=== PATIENT | male | born 1970 | race Two or more races ===

== ENCOUNTER 2020-07-30 08:22 | Outpatient (REF) | payer MEDICARE, OTHER, SELFPAY ==
--- NOTE | 2020-07-30 09:45 | XR_ITS ---
EXAMINATION: XR CHEST CLINICAL INFORMATION: Dyspnea COMPARISON: None TECHNIQUE: 2 views of the chest were obtained. FINDINGS: No significant abnormality is noted involving the heart, lungs, mediastinum, bony thorax or soft tissues. XR/XR chest 2V IMPRESSION: Unremarkable examination.
[2020-07-30 10:55] LABS: D Dimer 919 NG/ML
[2020-07-30 10:58] LABS: Troponin-I High Sensitivity < 3.5 ng/L (<3.5-35.0)
[2020-07-30 11:00] LABS: Basophils Percent Auto 0.4 % (0-2); Eosinophils Absolute Auto 0.1 X10*3/uL (0.0-0.4); Eosinophils Percent Auto 1.1 % (0-4); Hematocrit 51.5 % (42-52); Imm Gran Abs Auto 0.05 X10*3/uL (0.00-0.03); Imm Gran Pct Auto 0.7 % (0.0-0.4); Lymphocytes Absolute Auto 2.6 X10*3/uL (1.2-4.9); Lymphocytes Percent Auto 34.2 % (20-40); MANUAL DIFF FLAG SCAN; Mean Corpuscular Hemoglobin 29.4 pg (27.0-33.0); Mean Corpuscular Volume 89.1 fL (80-98); Mean Platelet Volume 12.8 fL (9.4-12.4); Monocytes Absolute Auto 0.6 X10*3/uL (0.1-1.2); Monocytes Percent Auto 7.4 % (2-11); Neutrophils Absolute Auto 4.2 X10*3/uL (2.0-8.3); Neutrophils Percent Auto 56.2 % (45-73); PLT CLUMP 1; Red Blood Count 5.78 X10*6/uL (4.60-5.80); Red Cell Distribution Width 12.9 % (11.0-16.0); SCAN SMEAR FLAG 1
[2020-07-30 11:17] LABS: Alanine Aminotransferase 46 U/L (0-40); Albumin Level 4.6 g/dL (3.5-5.0); Alkaline Phosphatase 114 U/L (39-117); Anion Gap 14 (12-20); Aspartate Amino Transferase 29 U/L (5-37); Bilirubin Direct 0.2 mg/dL (0.0-0.5); Bilirubin Total 0.6 mg/dL (0.0-1.0); Blood Urea Nitrogen 14 mg/dL (9-16); Carbon Dioxide 26 mmol/L (22-29); Chloride 103 mmol/L (96-108); Estimated Glomerular Filt Rate > 60; Glucose Random 96 mg/dL (60-115); Potassium 4.3 mmol/l (3.3-5.1); Sodium 139 mmol/L (135-145); Total Protein 7.7 g/dL (6.5-8.0)
[2020-07-30 11:51] LABS: Erythrocyte Sedimentation Rate 2 MM/HR (0-15)
[2020-07-30 14:03] LABS: SLIDE REVIEW VERIFIED; White Blood Count 7.5 X10*3/uL (4.8-10.8)
[2020-08-08 16:03] LABS: Angiotensin Converting Enzyme 51 U/L (9-67)
== END 2020-07-30 08:23 | disposition home or self-care (01) ==
LOC: HO.LAB 08:22
PROVIDERS: PCP Internal Medicine; Visit Provider Hospitalist
DX: R06.00 Dyspnea, unspecified (principal); G47.33 Obstructive sleep apnea (adult) (pediatric); J45.40 Moderate persistent asthma, uncomplicated; M79.89 Other specified soft tissue disorders; G62.9 Polyneuropathy, unspecified; R79.89 Other specified abnormal findings of blood chemistry
CPT/HCPCS: 36415; 71046; 80048; 80076; 82164; 84484; 85025; 85379; 85652; 86038; 86039

== ENCOUNTER 2020-07-31 14:18 | Outpatient (REF) | payer MEDICARE, OTHER, SELFPAY ==
--- NOTE | 2020-07-31 14:21 | CT_ITS ---
EXAMINATION: CT ANGIOGRAM OF THE CHEST WITH AND WITHOUT CONTRAST (CT PULMONARY ANGIOGRAM FOR PE) CLINICAL INFORMATION: Reason for Exam R79.89 - Other specified abnormal findings of blood chemistry COMPARISON: None TECHNIQUE: Prior to contrast administration, noncontrast localization images were obtained. Subsequently, multidetector volumetric imaging was performed from the thoracic inlet to below the diaphragms following the administration of 80 mL Omnipaque 350 intravenous contrast. No contrast reaction reported Sagittal, coronal, and MIP oblique sagittal reformatted images were obtained on the CT workstation, uploaded to PACS, and reviewed. This CT examination was performed using dose optimization techniques as appropriate, variously including the following: *Automated exposure control *Adjustment of mA and/or kV according to patient size (this includes techniques or standardized protocols for targeted exams where dose is matched to indication/reason for exam; i.e. extremities or head) *Use of iterative reconstruction technique Total exam dose-length product 147 mGy-cm FINDINGS: QUALITY OF STUDY/CONTRAST BOLUS: Suboptimal due to timing effect. PULMONARY ARTERIES: There is streak artifact seen in the right superior pulmonary artery on axial image 20/5 corresponding to coronal image 79/7. No filling defects seen in the central or main pulmonary artery and its branches THORACIC AORTA: No aneurysm or dissection. LUNG: No focal consolidation, nodules or masses. PLEURA: No pleural effusion or pneumothorax. MEDIASTINUM: The thyroid lobes are symmetrical and normal. The central trachea and the bronchi widely patent. Heart size and the great vessels are normal caliber. No abnormal mediastinal mass or lymphadenopathy seen. There is no pericardial effusion. No evidence of septal bowing or right heart strain. CHEST WALL/AXILLA: No axillary or internal mammary lymphadenopathy. OSSEOUS STRUCTURES: There is no acute osseous abnormality. There is mild ventral spondylosis dorsal spine. No lytic process. UPPER ABDOMEN: Visualized liver, spleen, pancreas and bilateral adrenal glands are unremarkable. No reflux of contrast into the hepatic veins to suggest elevated right heart pressures. CT/CT angio chest PE protocol IMPRESSION: No evidence of PE. No evidence of aortic dissection or aneurysm seen. However the exam is limited. VTE: negative
[2020-07-31] MEDS: iohexoL 350 MG/ML 100 ML INFUS..BTL IV (15:45)
== END 2020-07-31 14:19 | disposition home or self-care (01) ==
LOC: HO.CT 14:18
PROVIDERS: Visit Provider Hospitalist
DX: R79.89 Other specified abnormal findings of blood chemistry (principal); R06.00 Dyspnea, unspecified
CPT/HCPCS: 71275; Q9967

== ENCOUNTER 2020-08-01 13:31 | Outpatient (REF) | payer MEDICARE, OTHER, SELFPAY ==
--- NOTE | 2020-08-01 13:39 | US_ITS ---
EXAMINATION: US VENOUS ULTRASOUND WITH DOPPLER LOWER EXTREMITY, BILATERAL CLINICAL INFORMATION: 49-year-old male patient with lower extremity swelling. Positive d-dimer. COMPARISON: None TECHNIQUE: Ultrasound of the deep veins is performed from the hip to the calf with compression sonography and color and pulse Doppler assessment. Spectral analysis with color-flow imaging is performed. FINDINGS: RIGHT: There is normal venous compression and respiratory variation and augmented flow. The visualized common femoral vein, superficial femoral vein, profunda femoral vein, popliteal vein, and the trifurcation region shows no evidence of deep venous thrombosis. There is no significant popliteal fossa cyst. Benign-appearing lymph nodes are present in the right groin. LEFT: There is normal venous compression and respiratory variation and augmented flow. The visualized common femoral vein, superficial femoral vein, profunda femoral vein, popliteal vein, and the trifurcation region shows no evidence of deep venous thrombosis. There is no significant popliteal fossa cyst. US/US venous duplex LE BI IMPRESSION: No DVT demonstrated in the either lower extremity.
== END 2020-08-01 13:32 | disposition home or self-care (01) ==
LOC: HO.HMGCX 13:31
PROVIDERS: Visit Provider Hospitalist
DX: M79.89 Other specified soft tissue disorders (principal); R79.89 Other specified abnormal findings of blood chemistry
CPT/HCPCS: 93970

== ENCOUNTER → 2020-08-06 09:48 | Outpatient (REF) | payer MEDICARE, OTHER, SELFPAY ==
--- NOTE | 2020-08-06 09:51 | CA_ITS ---
Transthoracic Echocardiogram Patient (Last, First, Middle): Carlos Jimenez, Gender: Male Date of : 1970 Age: 49 Procedure Date: 08/06/2020 Procedure Type: Transthoracic Echocardiogram Location: OP Height: 177.8 cm Weight: 103.87 kg BSA: 2.21 m2 Heart Rate: bpm BP: 132 / 80 mmHg Business Services Representative: Referring MD: Noble Waller MD Steel Engraver: Jared Estrada MD Symptoms: M79.89 - Other specified soft tissue disorders Study Quality: Good ECG Rhythm: Sinus Conclusions: - 1. Normal LV systolic function with impaired relaxation filling pattern 2. Normal cardiac valvular Doppler 3. Normal RV systolic pressure 4. No pericardial effusion Findings Left Ventricle Normal left ventricular size, thickness, and systolic function. The visually estimated ejection fraction is between 55-60%. Spectral Doppler is indicative of an impaired relaxation filling pattern. E/E prime ratio is <8, consistent with normal filling pressures. Evidence suggests grade I (mild) diastolic dysfunction. Right Ventricle Normal right ventricular cavity size and systolic function. Atria Both atria are normal in size. Interatrial shunt cannot be excluded. Aortic Valve Normal aortic valve structure and function. There is no aortic valve stenosis. There is no aortic valve regurgitation. Mitral Valve Normal mitral valve structure and function. There is trace mitral valve regurgitation. There is no mitral valve stenosis. Pulmonic Valve The pulmonic valve was not well visualized. Tricuspid Valve Likely normal tricuspid valve structure and function. There is mild tricuspid valve regurgitation. The right ventricular systolic pressure is normal. The right ventricular systolic pressure is 24 mmHg. Normal right atrial pressure. There is no evidence of pulmonary hypertension. Great Vessels All visible segments of the aorta are normal in size. The pulmonary artery was not well visualized. Venous The inferior vena cava is normal in size and collapses greater than 50% with inspiration. Pericardium/Pleural There is no evidence of pericardial effusion. Prior Study Comparison No prior study available for comparison. Measurements 2D Linear Measurements IVSd: 1.26 0.6-0.9/0.6-1.0 cm LVIDd: 4.67 3.9-5.3/4.2-5.9 cm LVIDd Index: 2.11 2.4-3.2/2.2-3.1 cm/m2 LVIDs: 3.02 2.0-3.6 cm LVPWd: 1.21 0.7-1.1 cm Ao Root: 3.30 2.1-3.5 cm LA Diam: 3.80 2.7-3.8/3.0-4.0 cm LAIDs Index: 1.72 1.5-2.3 cm/m2 LV Mass: 272.63 67-162/88-224 g LV Mass Index: 123.36 43-95/49-115 g/m2 LVOT Diam: 2.30 3.0+(-)1.3 cm 2D Systolic Function EF 4C: 55.50 >55% EF 2C: 47.40 >55% Mitral Valve MV Pk E: 0.71 MV PK A: 0.92 MV Decel Time: 137.00 E/A: 0.80 E'Lateral: 8.41 E'Medial: 7.74 E/E' Med: 9.10 E/E' Lat: 8.40 PHT: 40.00 MVA PHT: 5.50 Decel [place]: 5.16 Aortic Valve AoV Pk Juanito: 1.27 AoV Mn Juanito: 0.90 AoV VTI: 0.27 AoV Pk Grad: 6.00 Aov Mn Grad: 4.00 ANGELA Cont.VTI: 3.13 LVOT LVOT Pk Juanito: 1.02 LVOT Mn Juanito: 0.66 LVOT VTI: 0.20 LVOT Pk Grad: 4.00 LVOT Mn Grad: 2.00 LVOT Diam: 2.30 LVOT Area: 4.15 Diastolic Function MV Pk E: 0.71 MV Pk A: 0.92 E/A: 0.80 E'Medial: 7.74 E/E' Med: 9.10 E' Laterial: 8.41 E/E' Lat: 8.40 Tricuspid Valve TR Pk Juanito: 2.31 TR Pk Grad: 21.00 RA Press: 3.00 RVSP: 24.00 Great Vessels Aorta Ao Root-2D: 3.30 2.0-3.7 cm Ao Asc: 3.30 2.1-3.4 cm Pulmonary Valve PV Pk Juanito: 1.18 Peak PV Grad: 6.00 Updated in Other Vendor System with Status of Final Jared Estrada MD electronically signed on 08/07/2020 12:34:47 PM with status of Final
== END ==
LOC: HO.CARD 09:48
PROVIDERS: Visit Provider Hospitalist
DX: M79.89 Other specified soft tissue disorders (principal)
CPT/HCPCS: 93306

== ENCOUNTER → 2020-08-10 12:23 | Outpatient (REF) | payer MEDICARE, OTHER, SELFPAY ==
--- NOTE | 2020-08-10 12:32 | XR_ITS ---
EXAMINATION: XR CHEST CLINICAL INFORMATION: R79.89 - Other specified abnormal findings of blood chemistry COMPARISON: Chest radiographs 07/30/2020 TECHNIQUE: 2 views of the chest were obtained. FINDINGS: The lungs are clear. There is no airspace consolidation or groundglass opacity. The vascularity is normal. There is no effusion. The heart is normal in size. The hilar and mediastinal contours and bony structures are unremarkable. XR/XR chest 2V IMPRESSION: Unremarkable examination.
--- NOTE | 2020-08-10 12:32 | NM_ITS ---
EXAMINATION: PULMONARY PERFUSION STUDY CLINICAL INFORMATION: Elevated d-dimer, limb swelling. COMPARISON: No previous lung scan is available for comparison. Radiographs of the chest dated 08/10/2020, the same date as this lung scan, are available for comparison. TECHNIQUE: Following the intravenous injection of 4.0 mCi Tc-99m MAA, an 8-view perfusion study was performed using a gamma scintillation camera. FINDINGS: No segmental perfusion defects are present. There is homogeneous distribution of activity bilaterally. There are no focal anatomic appearing perfusion defects present. NM/NM pul perfusion IMPRESSION: Normal radionuclide lung perfusion scan.
== END ==
LOC: HO.NUCMED 12:23
PROVIDERS: PCP Internal Medicine; Visit Provider Hospitalist
DX: R06.00 Dyspnea, unspecified (principal); R79.89 Other specified abnormal findings of blood chemistry
CPT/HCPCS: 71046; 78580; A9540

== ENCOUNTER → 2020-10-15 10:23 | Outpatient (BNVA) | payer MEDICARE, OTHER, SELFPAY | PROVIDERS: PCP Internal Medicine; Visit Provider Hospitalist | DX: R06.00 Dyspnea, unspecified (principal); M79.89 Other specified soft tissue disorders | CPT/HCPCS: Q3014 ==

== ENCOUNTER → 2021-09-27 14:20 | Outpatient (BNVA) | payer MEDICARE, OTHER, SELFPAY | PROVIDERS: Visit Provider Hospitalist | DX: J45.40 Moderate persistent asthma, uncomplicated (principal); R76.8 Other specified abnormal immunological findings in serum; G47.33 Obstructive sleep apnea (adult) (pediatric); Z99.89 Dependence on other enabling machines and devices | CPT/HCPCS: Q3014 ==

== ENCOUNTER 2022-02-17 11:02 | Outpatient (REF) | payer MEDICARE, OTHER, SELFPAY ==
--- NOTE | ~2022-02-17 | XR_ITS ---
EXAMINATION: XR CHEST CLINICAL INFORMATION: R04.2 - Hemoptysis COMPARISON: Chest radiographs 08/10/2020, 07/30/2020 TECHNIQUE: 2 views of the chest were obtained. FINDINGS: Clear lungs. No airspace opacity, mass, pleural reaction, or effusion. The costophrenic sulci are clear. Heart size normal. The hilar and mediastinal contours and visualized bony structures are unremarkable. XR/XR chest 2V IMPRESSION: Unremarkable examination.
== END 2022-02-17 11:03 | disposition home or self-care (01) ==
LOC: HO.XRAY 11:02
PROVIDERS: Visit Provider Hospitalist
DX: J45.40 Moderate persistent asthma, uncomplicated (principal); G47.33 Obstructive sleep apnea (adult) (pediatric); R76.8 Other specified abnormal immunological findings in serum; R04.2 Hemoptysis; D75.1 Secondary polycythemia; Z99.89 Dependence on other enabling machines and devices
CPT/HCPCS: 71046; 99212

== ENCOUNTER 2022-07-10 14:45 | Outpatient (REF) | payer MEDICARE, OTHER, SELFPAY ==
--- NOTE | ~2022-07-10 | XR_ITS ---
EXAMINATION: XR CHEST 2 VIEWS CLINICAL INFORMATION: Chest pain. COMPARISON: Chest radiographs dated 02/17/2022. TECHNIQUE: Frontal and lateral views of the chest were obtained. FINDINGS: The heart, great vessels, pulmonary vasculature and mediastinum are normal. The lungs show no focal infiltrate, effusion or pneumothorax. There is no acute osseous abnormality. XR/XR chest 2V IMPRESSION: No active cardiopulmonary disease.
== END 2022-07-10 14:46 | disposition home or self-care (01) ==
LOC: HO.XRAY 14:45
PROVIDERS: Visit Provider Hospitalist
DX: R07.9 Chest pain, unspecified (principal); J45.40 Moderate persistent asthma, uncomplicated; G47.33 Obstructive sleep apnea (adult) (pediatric); R76.8 Other specified abnormal immunological findings in serum; D75.1 Secondary polycythemia; Z99.89 Dependence on other enabling machines and devices
CPT/HCPCS: 71046; 99212

== ENCOUNTER 2022-08-08 12:25 | Outpatient (REF) | payer MEDICARE, SELFPAY ==
--- NOTE | 2022-08-08 15:14 | PFT_ITS ---
FLOWS: FEV1 85% of predicted at 3.26 L. FVC 84% of predicted at 4.11 L. FEV1 to FVC ratio of 0.79. No bronchodilator response. LUNG VOLUMES: Total lung capacity 87% of predicted at 6.10 L. Residual volume 104% of predicted at 2.21 L. Slow vital capacity 79% of predicted at 3.89 L. Expiratory reserve volume 25% of predicted at 0.37 L. Diffusion capacity is normal. IMPRESSION: No obstructive or restrictive ventilatory defect. No bronchodilator response. Decreased expiratory reserve volume suggests extrathoracic restriction likely secondary to abdominal obesity. Fish Soto MD AP/MODL / [id number]
== END 2022-08-08 12:26 | disposition home or self-care (01) ==
LOC: HO.RESP 12:25
PROVIDERS: Visit Provider Hospitalist
DX: Z23 Encounter for immunization (principal); J45.40 Moderate persistent asthma, uncomplicated; G47.33 Obstructive sleep apnea (adult) (pediatric); R76.8 Other specified abnormal immunological findings in serum; D75.1 Secondary polycythemia; Z99.89 Dependence on other enabling machines and devices
CPT/HCPCS: 90471; 90686; 94060; 94727; 94729; 99212

== ENCOUNTER → 2022-11-14 14:02 | Outpatient (BNVA) | payer MEDICARE, SELFPAY | PROVIDERS: Visit Provider Hospitalist | DX: J45.40 Moderate persistent asthma, uncomplicated (principal); G47.33 Obstructive sleep apnea (adult) (pediatric); R76.8 Other specified abnormal immunological findings in serum; D75.1 Secondary polycythemia; Z99.89 Dependence on other enabling machines and devices | CPT/HCPCS: Q3014 ==

== ENCOUNTER 2023-06-01 08:59 | Outpatient (AMB) | payer MEDICARE, SELFPAY ==
[2023-06-01 08:59] VITALS: BMI 33.1
--- NOTE | 2023-06-01 08:59 | A.OFFVIS_ITS ---
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 Overall he is having worsening respiratory symptoms. The patient has been having more wheezing especially at nighttime. Moderate in severity. He has been using short-acting beta agonist and nebulized more often. He had to go to the ER couple months ago with worsening respiratory symptoms. He was given a course of steroids. The respiratory symptoms are affecting his quality of life. He still struggling to get control of his asthma. We did talk about his asthma plan and also his maintenance respiratory therapy. I will send all his medicines to the pharmacy. In the meantime is also using CPAP. Patient also is using a CPAP. The PAP therapy has been affecting beneficial. He continues to use the CPAP more than 4 hours a night. Denies any difficulties with that. He is getting supplies regularly. He understands he is to continue with this therapy. 04/2020 the patient is here for pulmonary follow-up visit. Overall he is doing well. His asthma seems to be well controlled on his current respiratory regimen. He denies any significant flare-ups or in needing rescue medication. He is developing some muscles cramping and discomfort. This may indeed be due to t he beta agonist effect. So therefore we did talk about decreasing the beta agonist Brovana, to once a day. He can continue his respiratory therapy. He also stop his CPAP. He was concerned that was worsening his polycythemia. I have reassured him that the CPAP partially help his polycythemia by avoiding hypoxia. He did re-have an overnight oximetry done on CPAP and demonstrated no evidence of any hypoxia which is reassuring. He also had pulmonary function studies demonstrating no obstructive nor restrictive ventilatory defect. Appears to have normal lung mechanics which is significantly improved from before. 07/30/2020 the patient is here for pulmonary follow-up visit. The patient is describing worsening dyspnea on exertion. Moderate severity with minimal activity. Also complains of some leg swelling that he has noticed. Left leg more than the right. He has been continue to use his respiratory therapy. Also, he has been using his CPAP. The CPAP therapy has been affecting be neficial. At one point he stopped taking it because he was told that he would worsen his issue with the polycythemia. I have reassured him that actually not using it would cause worsening polycythemia. He has also been traveling back and forth from [place]. He barely takes any breaks. Therefore he is immobilized for prolonged period of time. I did request blood work including a D-dimer that ended up being significantl elevated above 900. 04/26/2021 the patient is here for pulmonary follow-up visit. Overall the patient has been doing well. He was evaluated by Hematology regarding the elevated D-dimer and there was no significant findings. At this point is not clear except for he states that he has been bleeding from his gums. He is going to follow-up with his dentist. He continues uses CPAP. The CPAP therapy continues to be affecting beneficial. He does use it for more than 4 hours a night. In addition to that he continues with his current respiratory medication. We did review his blood work in addition to the elevated D-dimer he also had a positive GAY. He has had issues with arthritis including the possibility of cardiac arthritis. The patient may benefit from a rheumatological evaluation just to address the possibility of connective tissue disease especially in in view of the elevated D-dimer in the other inflammatory conditions that he has. 09/27/2021 the patient has a telephone visit today. Overall up the patient has been doing well from a respiratory status. His family member with tested positive for COVID-19 now he is waiting for his results. At this point he is asymptomatic. He is fully vaccinated. The patient has been using the CPAP. The CPAP therapy continues to be affecting beneficial. He does use it for more than 4 hours a night. He continues uses respiratory therapy as prescribed. He has been having issues getting the singular covered. I will recent to the pharmacy at this time. The patient will call us back if he tests positive for COVID-19 so we can initiate therapy due to his high risk with his underlying comorbidities. 02/17/2022 the patient is here for a pulmonary follow-up visit. Since we last spoke the patient continues to deal with his respiratory complaints. Still having shortness of breath and chest tightness, Moderate severity. He is requiring his rescue inhaler multiple times a week. He continues with his nebulizer therapy as prescribed. He also uses Daliresp with good response. Still continues to be symptomatic however. In addition to that, the patient has been describing intermittent hemoptysis. Has been seen some blood mixed in with saliva mucus. Usually when he coughs. He is not sure if it is coming from his throat or if it is deeper and from his lungs. The patient has not had any recent x-rays. He has been taking an aspirin daily and he does not is related to that issue. The patient does also have sleep apnea. He does have CPAP therapy available which she uses with good benefit. The patient has been dealing now with polycythemia. He is followed closely by Hematology. he has required therapeutic phlebotomy. 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 07/10/2022 the patient is here for pulmonary follow-up visit. Recently developed COVID-19. He was treated with antiviral therapy. He also received antibiotics. His symptoms did improve in his respiratory status as well. He does continue to uses nebulized therapy twice a day. He has been noticing increasing shortness of breath that the after having COVID. He understands and is in a little bit of time to recover from the residual symptoms. The patient also has been developing some chest discomfort. It is reproducible. Recently was working in the [place] traveling. Will go ahead and request a chest x-ray to assess the area. The meantime he also underwent in therapeutic phlebotomy for polycythemia. 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 The patient does continue to use CPAP. Although when he became sick with COVID he did take a break because was making cough more. Now the better he is going to go back to using it. The CPAP therapy has been affecting beneficial for him. 08/08/2022 the patient is here for a pulmonary follow-up visit. Patient continues to have episodes of shortness of breath at times when he is exerting himself. Moderate severity. Sometimes his significant other becomes very concerned. Sometimes when he is talking on the phone the person on the other side may say that he zones winded. He does continue to uses respiratory therapy as prescribed. He is using nebulized therapy twice a day. Sometimes he needs it more than that. He is also now off the Daliresp. Initially this was very affecting beneficial for him. However, then started developing significant mood changes. He has been doing a lot better from the mood changes after stopping the Daliresp. He did undergo pulmonary function studies today and I did review them with him. The patient does not have any significant obstructive nor restrictive ventilatory defects. 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 Does continue to use CPAP at nighttime. Needs to continue to use it more regularly however to decrease any cardiovascular risk. The patient also has cardiology appointment coming up. 11/14/2022 the patient has a telehealth visit today. He will be all he is doing well. He continues on the Spiriva and also on the Perforomist and budesonide. Seems like his asthma is better controlled now on the long-acting muscarinic antagonist. He is agreeable to switching his nebulized therapy to Symbicort to make it more manageable and to make sure that he is adherent to the therapy. In addition to that he is using the singular. Again, he had a bad reaction to Daliresp. He still dealing with polycythemia. He is monitoring very closely. He has not had to use get any phlebotomy recently. In the meantime the patient is also using the CPAP. The CPAP therapy continues to be affecting beneficial. He does use it for more than 4 hours a night. We did refer him to Allergy immunology. He did get a call from them. He had had to reschedule her hopefully can follow up soon in order to further evaluate allergic reactions that may be activating his asthma. 06/01/2023 the patient has a telehealth visit today. The patient is still struggling with his asthma. Seems to be getting worse. He states that his symptoms have gotten worse since he stopped the Daliresp. Initially had been very effective for him. But then he noticed that he was getting more anxious with it. Therefore he stopped it in the anxiety did improve. Now, with worsening respiratory symptoms he is thinking that it was very good medication for him. At this point will go ahead and restarted but at a lower dose 250 mcg. Hopefully we can titrated up so he does not get the adverse effects. And hopefully can tolerated and then increase it as tolerated. He continues use the respiratory therapy as prescribed. He may indeed need to start biologic therapy specially if his symptoms worsen. Will have him come in for blood work including allergy levels to see if he is a candidate for biologic therapy. Otherwise will continue with current respiratory therapy as prescribed. Will try to hold off on prednisone also. The patient has had some weight gain which is been concerning for him. Continues uses a CPAP CPAP therapy continues to be affecting beneficial. He does try to use it for more than 4 hours a night. We did refer him to Allergy immunology but at this point it is hard for the patient to get any allergy shots because of his constant travels. [facility] Medical History (Updated 06/01/23 @ 09:14 by Noble Waller MD) Chronic allergic rhinitis Hemoptysis JEAN on CPAP GAY positive D-dimer, elevated Neuropathy Limb swelling Dyspnea Moderate persistent asthma Family History (Updated 07/30/20 @ 21:09 by Noble Waller MD) Other Diabetes Social History (Updated 09/27/21 @ 14:24 by Marie Blanton [facility]) Patient Tobacco Use Status: Never used Tobacco Review of Systems Const Reports fatigue, Denies night sweats and Reports weight gain ENT Denies change in voice, Denies lip swelling, Denies mouth pain, Reports nasal congestion, Reports nasal discharge and Denies tongue swelling Card Denies leg edema and Reports dyspnea on exertion Resp Reports chest congestion, Reports cough, Denies hemoptysis, Reports dyspnea on exertion and Reports wheezing GI Denies abdominal pain Musc Reports myalgias Neuro Denies Neuro-related abnormal movements Psych Denies no additional complaints Endo Reports fatigue Alejandro/Lymph Denies easy bleeding and Denies lymphadenopathy Aller/Immun Denies lip swelling, Denies tongue swelling and Reports wheezing Physical Exam Vital Signs: BMI result Body Mass Index 33.1 Const General: comfortable Orientation/consciousness: patient oriented x3 Resp Effort & Inspection: normal respiratory effort and able to speak in complete sentences Neuro General: patient oriented x3 Assessment & Plan Assessment & Plan (1) Moderate persistent asthma: Code(s): J45.40 - Moderate persistent asthma, uncomplicated Qualifiers: Asthma complication type: uncomplicated Qualified Code(s): J45.40 - Moderate persistent asthma, uncomplicated (2) JEAN on CPAP: Code(s): G47.33 - Obstructive sleep apnea (adult) (pediatric); Z99.89 - Dependence on other enabling machines and devices (3) GAY positive: Code(s): R76.8 - Other specified abnormal immunological findings in serum (4) Polycythemia: Code(s): D75.1 - Secondary polycythemia Plan continue Symbicort continue Spiriva GABI as needed restart Daliresp 250mcg and increase slowly due to adverse symptoms Continue singulair F/U with Hematology regarding polycythemia/hemochromatosis Bloodwork ?Biologic therapy Continue CPAP therapy F/U 4-6 months Orders: Orders Complete Blood Count Auto Diff Today J30.9 - Allergic rhinitis, unspecified, J45.40 - Moderate persistent asthma, uncomplicated Rast Allergen Today J30.9 - Allergic rhinitis, unspecified, J45.40 - Moderate persistent asthma, uncomplicated Immunoglobulin E Today J30.9 - Allergic rhinitis, unspecified, J45.40 - Moderate persistent asthma, uncomplicated Immunoglobulins,IgG IgA IgM Today J30.9 - Allergic rhinitis, unspecified, J45.40 - Moderate persistent asthma, uncomplicated Erythrocyte Sedimentation Rate Today J30.9 - Allergic rhinitis, unspecified, J45.40 - Moderate persistent asthma, uncomplicated Telehealth Telehealth Location of provider rendering services: practice address Location of patient: address on file Patient Identification confirmed using: Name, : Yes Telehealth method: voice only Patient verbally consented to treatment: Yes Patient verbally consented to billing insurance company: Yes Patient informed of any privacy concerns related to visit: Yes Coding Level of Care Code Tele Est Pt Level 4 (54788) Diagnoses Moderate persistent asthma without complication J45.40 Asthma complication type: uncomplicated JEAN on CPAP G47.33; Z99.89 GAY positive R76.8 Polycythemia D75.1 Time Spent (min) 15
== END 2023-06-01 09:23 | disposition home or self-care (01) ==
LOC: HO.HPS 08:59
PROVIDERS: Visit Provider Hospitalist
DX: J45.40 Moderate persistent asthma, uncomplicated (principal); G47.33 Obstructive sleep apnea (adult) (pediatric); Z99.89 Dependence on other enabling machines and devices; R76.8 Other specified abnormal immunological findings in serum; D75.1 Secondary polycythemia
CPT/HCPCS: 99442

== ENCOUNTER → 2023-06-01 08:59 | Outpatient (BNVA) | payer MEDICARE, SELFPAY | PROVIDERS: Visit Provider Hospitalist ==

== ENCOUNTER 2024-03-04 10:24 | Outpatient (AMB) | payer MEDICARE, SELFPAY ==
--- NOTE | 2024-03-04 10:30 | MHC.OFFVIS ---
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 Overall he is having worsening respiratory symptoms. The patient has been having more wheezing especially at nighttime. Moderate in severity. He has been using short-acting beta agonist and nebulized more often. He had to go to the ER couple months ago with worsening respiratory symptoms. He was given a course of steroids. The respiratory symptoms are affecting his quality of life. He still struggling to get control of his asthma. We did talk about his asthma plan and also his maintenance respiratory therapy. I will send all his medicines to the pharmacy. In the meantime is also using CPAP. Patient also is using a CPAP. The PAP therapy has been affecting beneficial. He continues to use the CPAP more than 4 hours a night. Denies any difficulties with that. He is getting supplies regularly. He understands he is to continue with this therapy. 04/2020 the patient is here for pulmonary follow-up visit. Overall he is doing well. His asthma seems to be well controlled on his current respiratory regimen. He denies any significant flare-ups or in needing rescue medication. He is developing some muscles cramping and discomfort. This may indeed be due to the beta agonist effect. So therefore we did talk about decreasing the beta agonist Brovana, to once a day. He can continue his respiratory therapy. He also stop his CPAP. He was concerned that was worsening his polycythemia. I have reassured him that the CPAP partially help his polycythemia by avoiding hypoxia. He did re-have an overnight oximetry done on CPAP and demonstrated no evidence of any hypoxia which is reassuring. He also had pulmonary function studies demonstrating no obstructive nor restrictive ventilatory defect. Appears to have normal lung mechanics which is significantly improved from before. 07/30/2020 the patient is here for pulmonary follow-up visit. The patient is describing worsening dyspnea on exertion. Moderate severity with minimal activity. Also complains of some leg swelling that he has noticed. Left leg more than the right. He has been continue to use his respiratory therapy. Also, he has been using his CPAP. The CPAP therapy has been affecting beneficial. At one point he stopped taking it because he was told that he would worsen his issue with the polycythemia. I have reassured him that actually not using it would cause worsening polycythemia. He has also been traveling back and forth from [place]. He barely takes any breaks. Therefore he is immobilized for prolonged period of time. I did request blood work including a D-dimer that ended up being significantl elevated above 900. 04/26/2021 the patient is here for pulmonary follow-up visit. Overall the patient has been doing well. He was evaluated by Hematology regarding the elevated D-dimer and there was no significant findings. At this point is not clear except for he states that he has been bleeding from his gums. He is going to follow-up with his dentist. He continues uses CPAP. The CPAP therapy continues to be affecting beneficial. He does use it for more than 4 hours a night. In addition to that he continues with his current respiratory medication. We did review his blood work in addition to the elevated D-dimer he also had a positive GAY. He has had issues with arthritis including the possibility of cardiac arthritis. The patient may benefit from a rheumatological evaluation just to address the possibility of connective tissue disease especially in in view of the elevated D-dimer in the other inflammatory conditions that he has. 09/27/2021 the patient has a telephone visit today. Overall up the patient has been doing well from a respiratory status. His family member with tested positive for COVID-19 now he is waiting for his results. At this point he is asymptomatic. He is fully vaccinated. The patient has been using the CPAP. The CPAP therapy continues to be affecting beneficial. He does use it for more than 4 hours a night. He continues uses respiratory therapy as prescribed. He has been having issues getting the singular covered. I will recent to the pharmacy at this time. The patient will call us back if he tests positive for COVID-19 so we can initiate therapy due to his high risk with his underlying comorbidities. 02/17/2022 the patient is here for a pulmonary follow-up visit. Since we last spoke the patient continues to deal with his respiratory complaints. Still having shortness of breath and chest tightness, Moderate severity. He is requiring his rescue inhaler multiple times a week. He continues with his nebulizer therapy as prescribed. He also uses Daliresp with good response. Still continues to be symptomatic however. In addition to that, the patient has been describing intermittent hemoptysis. Has been seen some blood mixed in with saliva mucus. Usually when he coughs. He is not sure if it is coming from his throat or if it is deeper and from his lungs. The patient has not had any recent x-rays. He has been taking an aspirin daily and he does not is related to that issue. The patient does also have sleep apnea. He does have CPAP therapy available which she uses with good benefit. The patient has been dealing now with polycythemia. He is followed closely by Hematology. he has required therapeutic phlebotomy. 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 07/10/2022 the patient is here for pulmonary follow-up visit. Recently developed COVID-19. He was treated with antiviral therapy. He also received antibiotics. His symptoms did improve in his respiratory status as well. He does continue to uses nebulized therapy twice a day. He has been noticing increasing shortness of breath that the after having COVID. He understands and is in a little bit of time to recover from the residual symptoms. The patient also has been developing some chest discomfort. It is reproducible. Recently was working in the [employer] traveling. Will go ahead and request a chest x-ray to assess the area. The meantime he also underwent in therapeutic phlebotomy for polycythemia. He is going to be following up with his supervisor testing soon. 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 The patient does continue to use CPAP. Although when he became sick with COVID he did take a break because was making cough more. Now the better he is going to go back to using it. The CPAP therapy has been affecting beneficial for him. 08/08/2022 the patient is here for a pulmonary follow-up visit. Patient continues to have episodes of shortness of breath at times when he is exerting himself. Moderate severity. Sometimes his significant other becomes very concerned. Sometimes when he is talking on the phone the person on the other side may say that he zones winded. He does continue to uses respiratory therapy as prescribed. He is using nebulized therapy twice a day. Sometimes he needs it more than that. He is also now off the Daliresp. Initially this was very affecting beneficial for him. However, then started developing significant mood changes. He has been doing a lot better from the mood changes after stopping the Daliresp. He did undergo pulmonary function studies today and I did review them with him. The patient does not have any significant obstructive nor restrictive ventilatory defects. 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 Does continue to use CPAP at nighttime. Needs to continue to use it more regularly however to decrease any cardiovascular risk. The patient also has cardiology appointment coming up. 11/14/2022 the patient has a telehealth visit today. He will be all he is doing well. He continues on the Spiriva and also on the Perforomist and budesonide. Seems like his asthma is better controlled now on the long-acting muscarinic antagonist. He is agreeable to switching his nebulized therapy to Symbicort to make it more manageable and to make sure that he is adherent to the therapy. In addition to that he is using the singular. Again, he had a bad reaction to Daliresp. He still dealing with polycythemia. He is monitoring very closely. He has not had to use get any phlebotomy recently. In the meantime the patient is also using the CPAP. The CPAP therapy continues to be affecting beneficial. He does use it for more than 4 hours a night. We did refer him to Allergy immunology. He did get a call from them. He had had to reschedule her hopefully can follow up soon in order to further evaluate allergic reactions that may be activating his asthma. 06/01/2023 the patient has a telehealth visit today. The patient is still struggling with his asthma. Seems to be getting worse. He states that his symptoms have gotten worse since he stopped the Daliresp. Initially had been very effective for him. But then he noticed that he was getting more anxious with it. Therefore he stopped it in the anxiety did improve. Now, with worsening respiratory symptoms he is thinking that it was very good medication for him. At this point will go ahead and restarted but at a lower dose 250 mcg. Hopefully we can titrated up so he does not get the adverse effects. And hopefully can tolerated and then increase it as tolerated. He continues use the respiratory therapy as prescribed. He may indeed need to start biologic therapy specially if his symptoms worsen. Will have him come in for blood work including allergy levels to see if he is a candidate for biologic therapy. Otherwise will continue with current respiratory therapy as prescribed. Will try to hold off on prednisone also. The patient has had some weight gain which is been concerning for him. Continues uses a CPAP CPAP therapy continues to be affecting beneficial. He does try to use it for more than 4 hours a night. We did refer him to Allergy immunology but at this point it is hard for the patient to get any allergy shots because of his constant travels. 03/04/2024 the patient is here for a pulmonary follow-up visit. The patient has been feeling okay. Developing dyspnea on exertion. [id number] severity. Septic specially when doing chores around the house. He is still dealing with this issue polycythemia. He was told it was secondary likely from his sleep apnea. The patient has been struggling with CPAP. He has not been as compliant as he needs to be. We talked about the importance of doing that. Will go ahead and request he performs an overnight oximetry along with CPAP in order to see if he needs oxygen along with a. The patient also continues uses respiratory therapy with good effect. He does have underlying allergies. The patient does have allergy medicines at this time. Although he did stop the Singulair because it was given in adverse symptoms. He was not quite sure. I did recommend he can started as half a dose and see if the symptoms return if the symptoms do not return that he can try the full dose and see as a trial. If he does tolerated and will help him during these allergy season. We did go for brief walking oximetry the patient did very good maintaining a pulse ox of 97% with activity. The patient does have significant airway disease likely when he is doing chores outside he will feel the increasing chest tightness in the increased work of breathing because of the bronchospasms. [facility] Medical History (Updated 03/06/24 @ 20:17 by Noble Waller MD) Chronic allergic rhinitis Hemoptysis JEAN on CPAP GAY positive D-dimer, elevated Neuropathy Limb swelling Dyspnea Moderate persistent asthma Family History (Updated 07/30/20 @ 21:09 by Noble Waller MD) Other Diabetes Social History (Updated 09/27/21 @ 14:24 by Marie Blanton [facility]) Patient Tobacco Use Status: Never used Tobacco Review of Systems Const Reports fatigue, Denies night sweats and Reports weight gain ENT Denies change in voice, Denies lip swelling, Denies mouth pain, Reports nasal congestion, Reports nasal discharge and Denies tongue swelling Card Denies leg edema and Reports dyspnea on exertion Resp Denies chest congestion, Reports cough, Denies hemoptysis, Reports dyspnea on exertion and Reports wheezing GI Denies abdominal pain Musc Reports myalgias Neuro Denies Neuro-related abnormal movements Psych Denies no additional complaints Endo Reports fatigue Alejandro/Lymph Denies easy bleeding and Denies lymphadenopathy Aller/Immun Denies lip swelling, Denies tongue swelling and Reports wheezing Physical Exam Vital Signs: Last Vital Signs Pulse 75 03/04/24 10:31 Pulse Ox 98 03/04/24 10:31 Oxygen Delivery Method Room Air 03/04/24 10:31 BMI result Body Mass Index 33.1 Const General: alert HEENT General nose exam: Abnormal external nose present and Nasal discharge present Neck Neck: Yes normal visual inspection, Yes full ROM and Yes no lymphadenopathy Chest Chest palpation & inspection: normal inspection of the chest Resp Auscultation: no rales, no rhonchi, no wheezes and diminished lung sounds Cardio Rate: regular rate Rhythm: regular rhythm Heart sounds: S1 normal heart sound present and S2 normal heart sound present GI Palpation (GI): Soft to palpation and nontender Auscultation: normal bowel sounds General: Yes no CVA tenderness Back/Spine/Pelvis Back: no CVA tenderness Skin General skin exam: rashes and/or lesions noted Extrem General: No clubbing, No cyanosis and Yes edema Assessment & Plan Assessment & Plan (1) JEAN on CPAP: Code(s): G47.33 - Obstructive sleep apnea (adult) (pediatric); Z99.89 - Dependence on other enabling machines and devices Category: Medical (2) Polycythemia: Code(s): D75.1 - Secondary polycythemia Category: Medical (3) Moderate persistent asthma: Code(s): J45.40 - Moderate persistent asthma, uncomplicated Category: Medical Qualifiers: Asthma complication type: uncomplicated Qualified Code(s): J45.40 - Moderate persistent asthma, uncomplicated (4) GAY positive: Code(s): R76.8 - Other specified abnormal immunological findings in serum Category: Medical (5) Dyspnea: Code(s): R06.00 - Dyspnea, unspecified Category: Medical Qualifiers: Dyspnea type: dyspnea on exertion Qualified Code(s): R06.09 - Other forms of dyspnea Plan continue Symbicort continue Spiriva GABI as needed stop Daliresp 250mcg Continue singulair F/U with Hematology regarding polycythemia Bloodwork ?Biologic therapy Continue CPAP therapy requesting overnight oximetry F/U 4-6 months Orders: Orders Overnight Pulse Oximetry 03/04/24 D75.1 - Secondary polycythemia, G47.33 - Obstructive sleep apnea (adult) (pediatric), Z99.89 - Dependence on other enabling machines and devices XR chest 2V 03/04/24 R06.00 - Dyspnea, unspecified Pneumococcal 20 Immunization 03/04/24 Z23 - Encounter for immunization Medications: Refilled montelukast 10 mg PO BEDTIME 90 tabs 3RF J45.40 - Moderate persistent asthma, uncomplicated Coding Level of Care Code Est Pt Level 4 (61173) Diagnoses JEAN on CPAP G47.33; Z99.89 Polycythemia D75.1 Moderate persistent asthma without complication J45.40 Asthma complication type: uncomplicated GAY positive R76.8 Dyspnea on exertion R06.09 Dyspnea type: dyspnea on exertion Time Spent (min) 17
[2024-03-04 10:31] VITALS: PULSE 75; O2SAT 98; BMI 33.1
== END 2024-03-04 11:03 | disposition home or self-care (01) ==
PROVIDERS: Visit Provider Hospitalist
DX: G47.33 Obstructive sleep apnea (adult) (pediatric) (principal); Z99.89 Dependence on other enabling machines and devices; D75.1 Secondary polycythemia; J45.40 Moderate persistent asthma, uncomplicated; R76.8 Other specified abnormal immunological findings in serum; R06.09 Other forms of dyspnea
CPT/HCPCS: 99214

== ENCOUNTER 2024-03-04 10:24 | Outpatient (REF) | payer MEDICARE, OTHER, SELFPAY ==
--- NOTE | ~2024-03-04 | XR_ITS ---
EXAMINATION: XR CHEST CLINICAL INFORMATION: Dyspnea. COMPARISON: 07/10/2022 TECHNIQUE: 2 views of the chest were obtained. FINDINGS: There is no gross pneumothorax. Heart size is normal. Mild dextroscoliosis of the thoracolumbar spine with mild multilevel degenerative changes. No pleural effusion. No focal consolidation to suggest pneumonia. XR/XR chest 2V IMPRESSION: No evidence of pneumonia.
== END 2024-03-04 10:25 | disposition home or self-care (01) ==
LOC: HO.XRAY 10:24
PROVIDERS: Referring Provider Internal Medicine; Visit Provider Hospitalist
DX: R06.00 Dyspnea, unspecified (principal); G47.33 Obstructive sleep apnea (adult) (pediatric); D75.1 Secondary polycythemia; J45.40 Moderate persistent asthma, uncomplicated; R76.8 Other specified abnormal immunological findings in serum; R06.09 Other forms of dyspnea; J30.9 Allergic rhinitis, unspecified; Z23 Encounter for immunization; Z99.89 Dependence on other enabling machines and devices
CPT/HCPCS: 71046; 90471; 90677; 99212

== ENCOUNTER 2024-07-21 13:29 | Outpatient (REF) | payer MEDICARE, OTHER, SELFPAY | END 2024-07-21 13:30 | disposition home or self-care (01) | LOC: HO.RESP 13:29 | PROVIDERS: Visit Provider Hospitalist | DX: R06.09 Other forms of dyspnea (principal) | CPT/HCPCS: 94010; 94640; 94727; 94729 ==

== ENCOUNTER 2024-07-22 15:07 | Outpatient (AMB) | payer MEDICARE, OTHER, SELFPAY ==
--- NOTE | 2024-07-22 15:19 | A.OFFVIS_ITS ---
Vital Signs 07/22/24 15:23 Height 5 ft 10 in Weight 253 lb 8.505 oz BMI 36.4 BP 138/78 Blood Pressure Location Lt brachial Position Sitting Pulse 78 Pulse Source Pulse Oximeter Pulse Oximetry (%) 97 Oxygen Delivery Method Room Air Intake Visit Reasons: Asthma/PFT Follow Up Tactical Debriefer Officer Required: No Shank Inspector: Shank Inspector offered & declined Accompanied by: Self / Same As Patient Allergies lisinopril Allergy (Severe, Verified 07/22/24 15:24) Leg Cramps shellfish derived Allergy (Severe, Verified 07/22/24 15:24) Hives Medication List - Last Reconciled 07/22/24 by Lamar Wooten LPN albuterol sulfate 2.5 mg (3 mL) inhalation Q6H PRN 30 days albuterol sulfate 90 mcg/actuation 2 puffs inhalation Q6H PRN 30 days budesonide 0.5 mg (2 mL) inhalation BID budesonide-formoterol 160-4.5 mcg/actuation (Symbicort) 2 puffs inhalation BID 90 days buspirone 10 mg PO TID colchicine 0 mg PO Daliresp (roflumilast) 250 mcg PO DAILY 30 days NS diltiazem HCl CD 120 mg PO DAILY flu vacc [id number] 6mos up(PF) mL IM fluticasone propionate 50 mcg/actuation 2 sprays intranasal DAILY formoterol fumarate 2 mL inhalation BID montelukast 10 mg PO BEDTIME nebulizers As directed omeprazole 20 mg PO DAILY tiotropium bromide 2.5 mcg/actuation (Spiriva Respimat) 2 puffs PO DAILY HPI Comments Details: The patient is a 53 y/o man with moderate persistent asthma, 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 Overall he is having worsening respiratory symptoms. The patient has been having more wheezing especially at nighttime. Moderate in severity. He has been using short-acting beta agonist and nebulized more often. He had to go to the ER couple months ago with worsening respiratory symptoms. He was given a course of steroids. The respiratory symptoms are affecting his quality of life. He still struggling to get control of his asthma. We did talk about his asthma plan and also his maintenance respiratory therapy. I will send all his medicines to the pharmacy. In the meantime is also using CPAP. Patient also is using a CPAP. The PAP therapy has been affecting beneficial. He continues to use the CPAP more than 4 hours a night. Denies any difficulties with that. He is getting supplies regularly. He understands he is to continue with this therapy. 04/2020 the patient is here for pulmonary follow-up visit. Overall he is doing well. His asthma seems to be well controlled on his current respiratory regimen. He denies any significant flare-ups or in needing rescue medication. He is developing some muscles cramping and discomfort. This may indeed be due to the beta agonist effect. So therefore we did talk about decreasing the beta agonist Brovana, to once a day. He can continue his respiratory therapy. He also stop his CPAP. He was concerned that was worsening his polycythemia. I have reassured him that the CPAP partially help his polycythemia by avoiding hypoxia. He did re-have an overnight oximetry done on CPAP and demonstrated no evidence of any hypoxia which is reassuring. He also had pulmonary function studies demonstrating no obstructive nor restrictive ventilatory defect. Appears to have normal lung mechanics which is significantly improved from before. 07/30/2020 the patient is here for pulmonary follow-up visit. The patient is describing worsening dyspnea on exertion. Moderate severity with minimal activity. Also complains of some leg swelling that he has noticed. Left leg more than the right. He has been continue to use his respiratory therapy. Also, he has been using his CPAP. The CPAP therapy has been affecting beneficial. At one point he stopped taking it because he was told that he would worsen his issue with the polycythemia. I have reassured him that actually not using it would cause worsening polycythemia. He has also been traveling back and forth from [place]. He barely takes any breaks. Therefore he is immobilized for prolonged period of time. I did request blood work including a D-dimer that ended up being significantl elevated above 900. 04/26/2021 the patient is here for pulmonary follow-up visit. Overall the patient has been doing well. He was evaluated by Hematology regarding the elevated D-dimer and there was no significant findings. At this point is not clear except for he states that he has been bleeding from his gums. He is going to follow-up with his dentist. He continues uses CPAP. The CPAP therapy continues to be affecting beneficial. He does use it for more than 4 hours a night. In addition to that he continues with his current respiratory medication. We did review his blood work in addition to the elevated D-dimer he also had a positive GAY. He has had issues with arthritis including the possibility of cardiac arthritis. The patient may benefit from a rheumatological evaluation just to address the possibility of connective tissue disease especially in in view of the elevated D-dimer in the other inflammatory conditions that he has. 09/27/2021 the patient has a telephone visit today. Overall up the patient has been doing well from a respiratory status. His family member with tested positive for COVID-19 now he is waiting for his results. At this point he is asymptomatic. He is fully vaccinated. The patient has been using the CPAP. The CPAP therapy continues to be affecting beneficial. He does use it for more than 4 hours a night. He continues uses respiratory therapy as prescribed. He has been having issues getting the singular covered. I will recent to the pharmacy at this time. The patient will call us back if he tests positive for COVID-19 so we can initiate therapy due to his high risk with his underlying comorbidities. 02/17/2022 the patient is here for a pulmonary follow-up visit. Since we last spoke the patient continues to deal with his respiratory complaints. Still having shortness of breath and chest tightness, Moderate severity. He is requiring his rescue inhaler multiple times a week. He continues with his nebulizer therapy as prescribed. He also uses Daliresp with good response. Still continues to be symptomatic however. In addition to that, the patient has been describing intermittent hemoptysis. Has been seen some blood mixed in with saliva mucus. Usually when he coughs. He is not sure if it is coming from his throat or if it is deeper and from his lungs. The patient has not had any recent x-rays. He has been taking an aspirin daily and he does not is related to that issue. The patient does also have sleep apnea. He does have CPAP therapy available which she uses with good benefit. The patient has been dealing now with polycythemia. He is followed closely by Hematology. he has required therapeutic phlebotomy. 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 07/10/2022 the patient is here for pulmonary follow-up visit. Recently developed COVID-19. He was treated with antiviral therapy. He also received antibiotics. His symptoms did improve in his respiratory status as well. He does continue to uses nebulized therapy twice a day. He has been noticing increasing shortness of breath that the after having COVID. He understands and is in a little bit of time to recover from the residual symptoms. The patient also has been developing some chest discomfort. It is reproducible. Recently was working in the [employer] traveling. Will go ahead and request a chest x-ray to assess the area. The meantime he also underwent in therapeutic phlebotomy for polycythemia. He is going to be following up with his supply crib attendant soon. 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 The patient does continue to use CPAP. Although when he became sick with COVID he did take a break because was making cough more. Now the better he is going to go back to using it. The CPAP therapy has been affecting beneficial for him. 08/08/2022 the patient is here for a pulmonary follow-up visit. Patient continues to have episodes of shortness of breath at times when he is exerting himself. Moderate severity. Sometimes his significant other becomes very concerned. Sometimes when he is talking on the phone the person on the other side may say that he zones winded. He does continue to uses respiratory therapy as prescribed. He is using nebulized therapy twice a day. Sometimes he needs it more than that. He is also now off the Daliresp. Initially this was very affecting beneficial for him. However, then started developing significant mood changes. He has been doing a lot better from the mood changes after stopping the Daliresp. He did undergo pulmonary function studies today and I did review them with him. The patient does not have any significant obstructive nor restrictive ventilatory defects. 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 Does continue to use CPAP at nighttime. Needs to continue to use it more regularly however to decrease any cardiovascular risk. The patient also has cardiology appointment coming up. 11/14/2022 the patient has a telehealth visit today. He will be all he is doing well. He continues on the Spiriva and also on the Perforomist and budesonide. Seems like his asthma is better controlled now on the long-acting muscarinic antagonist. He is agreeable to switching his nebulized therapy to Symbicort to make it more manageable and to make sure that he is adherent to the therapy. In addition to that he is using the singular. Again, he had a bad reaction to Daliresp. He still dealing with polycythemia. He is monitoring very closely. He has not had to use get any phlebotomy recently. In the meantime the patient is also using the CPAP. The CPAP therapy continues to be affecting beneficial. He does use it for more than 4 hours a night. We did refer him to Allergy immunology. He did get a call from them. He had had to reschedule her hopefully can follow up soon in order to further evaluate allergic reactions that may be activating his asthma. 06/01/2023 the patient has a telehealth visit today. The patient is still struggling with his asthma. Seems to be getting worse. He states that his symptoms have gotten worse since he stopped the Daliresp. Initially had been very effective for him. But then he noticed that he was getting more anxious with it. Therefore he stopped it in the anxiety did improve. Now, with worsening respiratory symptoms he is thinking that it was very good medication for him. At this point will go ahead and restarted but at a lower dose 250 mcg. Hopefully we can titrated up so he does not get the adverse effects. And hopefully can tolerated and then increase it as tolerated. He continues use the respiratory therapy as prescribed. He may indeed need to start biologic therapy specially if his symptoms worsen. Will have him come in for blood work including allergy levels to see if he is a candidate for biologic therapy. Otherwise will continue with current respiratory therapy as prescribed. Will try to hold off on prednisone also. The patient has had some weight gain which is been concerning for him. Continues uses a CPAP CPAP therapy continues to be affecting beneficial. He does try to use it for more than 4 hours a night. We did refer him to Allergy immunology but at this point it is hard for the patient to get any allergy shots because of his constant travels. 03/04/2024 the patient is here for a pulmonary follow-up visit. The patient has been feeling okay. Developing dyspnea on exertion. Asii-kj-bbtjiaod severity. Septic specially when doing chores around the house. He is still dealing with this issue polycythemia. He was told it was secondary likely from his sleep apnea. The patient has been struggling with CPAP. He has not been as compliant as he needs to be. We talked about the importance of doing that. Will go ahead and request he performs an overnight oximetry along with CPAP in order to see if he needs oxygen along with a. The patient also continues uses respiratory therapy with good effect. He does have underlying allergies. The patient does have allergy medicines at this time. Although he did stop the Singulair because it was given in adverse symptoms. He was not quite sure. I did recommend he can started as half a dose and see if the symptoms return if the symptoms do not return that he can try the full dose and see as a trial. If he does tolerated and will help him during these allergy season. We did go for brief walking oximetry the patient did very good maintaining a pulse ox of 97% with activity. The patient does have significant airway disease likely when he is doing chores outside he will feel the increasing chest tightness in the increased work of breathing because of the bronchospasms. 07/22/2024 the patient is here for a pulmonary follow-up visit. Overall the patient has been doing okay. When he comes up to the [facility] he does start developing significant wheezing. He can have triggers very quickly where his breathing becomes very limited very quickly because the small airways disease. He has all his inhalers with him and he continue to treat himself as he is medically optimize right now. But even with the medical optimization he still have symptoms of bronchospasms. The patient did have pulmonary function studies which I personally reviewed with him. It appears that he does have some small airways disease consistent with the asthma. Also is breathe bronchodilator FEV1 to FVC is 72% which is very close to the obstructive physiology. In addition to that the patient does have a decrease in the total lung capacity compared to previous now 79% consistent with a mild restrictive lung disease. We are going to request a CT scan of the chest to better address the restriction and also his ongoing symptoms. The patient also has polycythemia. Is felt to be secondary to likely his obstructive sleep apnea. The patient needs to make sure to uses CPAP every night. I do not recommend hypoglossal nerve stimulator at this time. [facility] Medical History (Updated 07/24/24 @ 20:42 by Noble Waller MD) Chronic restrictive lung disease Chronic allergic rhinitis Hemoptysis JEAN on CPAP GAY positive D-dimer, elevated Neuropathy Limb swelling Dyspnea Moderate persistent asthma Family History (Updated 07/30/20 @ 21:09 by Noble Waller MD) Other Diabetes Social History (Updated 07/22/24 @ 15:27 by Lamar Wooten LPN) Patient Tobacco Use Status: Never used Tobacco Review of Systems Const Reports fatigue, Denies night sweats and Reports weight gain ENT Denies change in voice, Denies lip swelling, Denies mouth pain, Reports nasal congestion, Reports nasal discharge and Denies tongue swelling Card Denies leg edema and Reports dyspnea on exertion Resp Denies chest congestion, Reports cough, Denies hemoptysis, Reports dyspnea on e xertion and Reports wheezing GI Denies abdominal pain Musc Reports myalgias Neuro Denies Neuro-related abnormal movements Psych Denies no additional complaints Endo Reports fatigue Alejandro/Lymph Denies easy bleeding and Denies lymphadenopathy Aller/Immun Denies lip swelling, Denies tongue swelling and Reports wheezing Physical Exam Vital Signs: Last Vital Signs Pulse 78 07/22/24 15:23 BP 138/78 07/22/24 15:23 Pulse Ox 97 07/22/24 15:23 Oxygen Delivery Method Room Air 07/22/24 15:23 BMI result Body Mass Index 36.4 Const General: alert HEENT General nose exam: Abnormal external nose present and Nasal discharge present Neck Neck: Yes normal visual inspection, Yes full ROM and Yes no lymphadenopathy Chest Chest palpation & inspection: normal inspection of the chest Resp Auscultation: no rales, no rhonchi, no wheezes and diminished lung sounds Cardio Rate: regular rate Rhythm: regular rhythm Heart sounds: S1 normal heart sound present and S2 normal heart sound present GI Palpation (GI): Soft to palpation and nontender Auscultation: normal bowel sounds General: Yes no CVA tenderness Back/Spine/Pelvis Back: no CVA tenderness Skin General skin exam: rashes and/or lesions noted Extrem General: No clubbing, No cyanosis and Yes edema Assessment & Plan Assessment & Plan (1) JEAN on CPAP: Code(s): G47.33 - Obstructive sleep apnea (adult) (pediatric); Z99.89 - Dependence on other enabling machines and devices Category: Medical (2) Polycythemia: Code(s): D75.1 - Secondary polycythemia Category: Medical (3) Moderate persistent asthma: Code(s): J45.40 - Moderate persistent asthma, uncomplicated Category: Medical Qualifiers: Asthma complication type: uncomplicated Qualified Code(s): J45.40 - Moderate persistent asthma, uncomplicated (4) GAY positive: Code(s): R76.8 - Other specified abnormal immunological findings in serum Category: Medical (5) Dyspnea: Code(s): R06.00 - Dyspnea, unspecified Category: Medical Qualifiers: Dyspnea type: dyspnea on exertion Qualified Code(s): R06.09 - Other forms of dyspnea (6) Chronic restrictive lung disease: Code(s): J98.4 - Other disorders of lung Category: Medical (7) Chronic allergic rhinitis: Code(s): J30.9 - Allergic rhinitis, unspecified Category: Medical Plan continue Symbicort continue Spiriva GABI as needed stop Daliresp 250mcg Continue singulair F/U with Hematology regarding polycythemia Continue CPAP therapy CT chest to address restrictive lung disease and worsening dyspnea symptoms F/U 4-6 months Orders: Orders CT chest wo IV con Today J98.4 - Other disorders of lung Coding Level of Care Code Est Pt Level 4 (71475) Diagnoses JEAN on CPAP G47.33; Z99.89 Polycythemia D75.1 Moderate persistent asthma without complication J45.40 Asthma complication type: uncomplicated GAY positive R76.8 Dyspnea on exertion R06.09 Dyspnea type: dyspnea on exertion Chronic restrictive lung disease J98.4 Chronic allergic rhinitis J30.9 Time Spent (min) 17
[2024-07-22 15:23] VITALS: BP 138/78; PULSE 78; O2SAT 97; BMI 36.4
== END 2024-07-22 16:14 | disposition home or self-care (01) ==
PROVIDERS: Visit Provider Hospitalist
DX: G47.33 Obstructive sleep apnea (adult) (pediatric) (principal); Z99.89 Dependence on other enabling machines and devices; D75.1 Secondary polycythemia; J45.40 Moderate persistent asthma, uncomplicated; R76.8 Other specified abnormal immunological findings in serum; R06.09 Other forms of dyspnea; J98.4 Other disorders of lung; J30.9 Allergic rhinitis, unspecified
CPT/HCPCS: 99214

== ENCOUNTER → 2024-07-22 15:07 | Outpatient (BNVA) | payer MEDICARE, OTHER, SELFPAY | PROVIDERS: Visit Provider Hospitalist | DX: J45.40 Moderate persistent asthma, uncomplicated (principal); J98.4 Other disorders of lung; J30.9 Allergic rhinitis, unspecified; G47.33 Obstructive sleep apnea (adult) (pediatric); D75.1 Secondary polycythemia; R06.09 Other forms of dyspnea; Z99.89 Dependence on other enabling machines and devices | CPT/HCPCS: 99212 ==

== ENCOUNTER 2024-09-20 12:25 | Outpatient (REF) | payer MEDICARE, OTHER, SELFPAY ==
--- NOTE | ~2024-09-20 | CT_ITS ---
CLINICAL HISTORY: J98.4 - Other disorders of lung CT chest without contrast Comparison: None Findings: The heart is normal size. The visualized thyroid and mediastinum are unremarkable. Asymmetric right gynecomastia. No consolidation or effusion. Fatty liver. No acute fractures. IMPRESSION: 1. Asymmetric right gynecomastia. Recommend further physical evaluation. 2. Fatty liver. 3. Unremarkable chest otherwise. This document has been electronically signed by: Chantale Hernandez MD on 09/22/2024 05:16:09
== END 2024-09-20 12:26 | disposition home or self-care (01) ==
LOC: HO.CT 12:25
PROVIDERS: Visit Provider Hospitalist
DX: J98.4 Other disorders of lung (principal)
CPT/HCPCS: 71250

== ENCOUNTER → 2024-09-20 12:28 | Outpatient (BNV) | payer MEDICARE, OTHER, SELFPAY | PROVIDERS: Visit Provider Radiology Diagnostic Radiology | DX: N62 Hypertrophy of breast (principal); K76.0 Fatty (change of) liver, not elsewhere classified | CPT/HCPCS: 71250 ==

== ENCOUNTER 2025-02-22 10:08 | Outpatient (AMB) | payer MEDICARE, OTHER, SELFPAY ==
[2025-02-22 10:50] VITALS: BP 148/90; PULSE 70; O2SAT 96; BMI 34.8
--- NOTE | 2025-02-22 10:50 | A.OFFVIS_ITS ---
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 Overall he is having worsening respiratory symptoms. The patient has been having more wheezing especially at nighttime. Moderate in severity. He has been using short-acting beta agonist and nebulized more often. He had to go to the ER couple months ago with worsening respiratory symptoms. He was given a course of steroids. The respiratory symptoms are affecting his quality of life. He still struggling to get control of his asthma. We did talk about his asthma plan and also his maintenance respiratory therapy. I will send all his medicines to the pharmacy. In the meantime is also using CPAP. Patient also is using a CPAP. The PAP therapy has been affecting beneficial. He continues to use the CPA P more than 4 hours a night. Denies any difficulties with that. He is getting supplies regularly. He understands he is to continue with this therapy. 04/2020 the patient is here for pulmonary follow-up visit. Overall he is doing well. His asthma seems to be well controlled on his current respiratory regimen. He denies any significant flare-ups or in needing rescue medication. He is developing some muscles cramping and discomfort. This may indeed be due to the beta agonist effect. So therefore we did talk about decreasing the beta agonist Brovana, to once a day. He can continue his respiratory therapy. He also stop his CPAP. He was concerned that was worsening his polycythemia. I have reassured him that the CPAP partially help his polycythemia by avoiding hypoxia. He did re-have an overnight oximetry done on CPAP and demonstrated no evidence of any hypoxia which is reassuring. He also had pulmonary function studies demonstrating no obstructive nor restrictive ventilatory defect. Appears to have normal lung mechanics which is significantly improved from before. 07/30/2020 the patient is here for pulmonary follow-up visit. The patient is describing worsening dyspnea on exertion. Moderate severity with minimal activity. Also complains of some leg swelling that he has noticed. Left leg more than the right. He has been continue to use his respiratory therapy. Also , he has been using his CPAP. The CPAP therapy has been affecting beneficial. At one point he stopped taking it because he was told that he would worsen his issue with the polycythemia. I have reassured him that actually not using it would cause worsening polycythemia. He has also been traveling back and forth from [place]. He barely takes any breaks. Therefore he is immobilized for prolonged period of time. I did request blood work including a D-dimer that ended up being significantl elevated above 900. 04/26/2021 the patient is here for pulmonary follow-up visit. Overall the patient has been doing well. He was evaluated by Hematology regarding the elevated D-dimer and there was no significant findings. At this point is not clear except for he states that he has been bleeding from his gums. He is going to follow-up with his dentist. He continues uses CPAP. The CPAP therapy continues to be affecting beneficial. He does use it for more than 4 hours a night. In addition to that he continues with his current respiratory medication. We did review his blood work in addition to the elevated D-dimer he also had a positive GAY. He has had issues with arthritis including the possibility of cardiac arthritis. The patient may benefit from a rheumatological evaluation just to address the possibility of connective tissue disease especially in in view of the elevated D-dimer in the other inflammatory conditions that he has. 09/27/2021 the patient has a telephone visit today. Overall up the patient has been doing well from a respiratory status. His family member with tested positive for COVID-19 now he is waiting for his results. At this point he is asymptomatic. He is fully vaccinated. The patient has been using the CPAP. The CPAP therapy continues to be affecting beneficial. He does use it for more than 4 hours a night. He continues uses respiratory therapy as prescribed. He has been having issues getting the singular covered. I will rec ent to the pharmacy at this time. The patient will call us back if he tests positive for COVID-19 so we can initiate therapy due to his high risk with his underlying comorbidities. 02/17/2022 the patient is here for a pulmonary follow-up visit. Since we last spoke the patient continues to deal with his respiratory complaints. Still having shortness of breath and chest tightness, Moderate severity. He is requiring his rescue inhaler multiple times a week. He continues with his nebulizer therapy as prescribed. He also uses Daliresp with good response. Still continues to be symptomatic however. In addition to that, the patient has been describing intermittent hemoptysis. Has been seen some blood mixed in with saliva mucus. Usually when he coughs. He is not sure if it is coming from his throat or if it is deeper and from his lungs. The patient has not had any recent x-rays. He has been taking an aspirin daily and he does not is related to that issue. The patient does also have sleep apnea. He does have CPAP therapy available which she uses with good benefit. The patient has been dealing now with polycythemia. He is followed closely by Hematology. he has required therapeutic phlebotomy. 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 07/10/2022 the patient is here for pulmonary follow-up visit. Recently developed COVID-19. He was treated with antiviral therapy. He also received antibiotics. His symptoms did improve in his respiratory status as well. He does continue to uses nebulized therapy twice a day. He has been noticing increasing shortness of breath that the after having COVID. He understands and is in a little bit of time to recover from the residual symptoms. The patient also has been developing some chest discomfort. It is reproducible. Recently was working in the [employer] traveling. Will go ahead and request a chest x-ray to assess the area. The meantime he also underwent in therapeutic phlebotomy for polycythemia. He is going to be following up with his clam dredger soon. 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 The patient does continue to use CPAP. Although when he became sick with COVID he did take a break because was making cough more. Now the better he is going to go back to using it. The CPAP therapy has been affecting beneficial for him. 08/08/2022 the patient is here for a pulmonary follow-up visit. Patient continues to have episodes of shortness of breath at times when he is exerting himself. Moderate severity. Sometimes his significant other becomes very concerned. Sometimes when he is talking on the phone the person on the other side may say that he zones winded. He does continue to uses respiratory therapy as prescribed. He is using nebulized therapy twice a day. Sometimes he needs it more than that. He is also now off the Daliresp. Initially this was very affecting beneficial for him. However, then started developing significant mood changes. He has been doing a lot better from the mood changes after stopping the Daliresp. He did undergo pulmonary function studies today and I did review them with him. The patient does not have any significant obstructive nor restrictive ventilatory defects. 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 Does continue to use CPAP at nighttime. Needs to continue to use it more regularly however to decrease any cardiovascular risk. The patient also has cardiology appointment coming up. 11/14/2022 the patient has a telehealth visit today. He will be all he is doing well. He continues on the Spiriva and also on the Perforomist and budesonide. Seems like his asthma is better controlled now on the long-acting muscarinic antagonist. He is agreeable to switching his nebulized therapy to Symbicort to make it more manageable and to make sure that he is adherent to the therapy. In addition to that he is using the singular. Again, he had a bad reaction to Daliresp. He still dealing with polycythemia. He is monitoring very closely. He has not had to use get any phlebotomy recently. In the meantime the patient is also using the CPAP. The CPAP therapy continues to be affecting beneficial. He does use it for more than 4 hours a night. We did refer him to Allergy immunology. He did get a call from them. He had had to reschedule her hopefully can follow up soon in order to further evaluate allergic reactions that may be activating his asthma. 06/01/2023 the patient has a telehealth visit today. The patient is still struggling with his asthma. Seems to be getting worse. He states that his symptoms have gotten worse since he stopped the Daliresp. Initially had been very effective for him. But then he noticed that he was getting more anxious with it. Therefore he stopped it in the anxiety did improve. Now, with worsening respiratory symptoms he is thinking that it was very good medication for him. At this point will go ahead and restarted but at a lower dose 250 mcg. Hopefully we can titrated up so he does not get the adverse effects. And hopefully can tolerated and then increase it as tolerated. He continues use the respiratory therapy as prescribed. He may indeed need to start biologic therapy specially if his symptoms worsen. Will have him come in for blood work including allergy levels to see if he is a candidate for biologic therapy. Otherwise will continue with current respiratory therapy as prescribed. Will try to hold off on prednisone also. The patient has had some weight gain which is been concerning for him. Continues uses a CPAP CPAP therapy continues to be affecting beneficial. He does try to use it for more than 4 hours a night. We did refer him to Allergy immunology but at this point it is hard for the patient to get any allergy shots because of his constant travels. 03/04/2024 the patient is here for a pulmonary follow-up visit. The patient has been feeling okay. Developing dyspnea on exertion. Mquj-mu-hvywrdif severity. Septic specially when doing chores around the house. He is still dealing with this issue polycythemia. He was told it was secondary likely from his sleep apnea. The patient has been struggling with CPAP. He has not been as compliant as he needs to be. We talked about the importance of do ing that. Will go ahead and request he performs an overnight oximetry along with CPAP in order to see if he needs oxygen along with a. The patient also continues uses respiratory therapy with good effect. He does have underlying allergies. The patient does have allergy medicines at this time. Although he did stop the Singulair because it was given in adverse symptoms. He was not quite sure. I did recommend he can started as half a dose and see if the symptoms return if the symptoms do not return that he can try the full dose and see as a trial. If he does tolerated and will help him during these allergy season. We did go for brief walking oximetry the patient did very good maintaining a pulse ox of 97% with activity. The patient does have significant airway disease likely when he is doing chores outside he will feel the increasing chest tightness in the increased work of breathing because of the bronchospasms. 07/22/2024 the patient is here for a pulmonary follow-up visit. Overall the patient has been doing okay. When he comes up to the [facility] he does start developing significant wheezing. He can have triggers very quickly where his breathing becomes very limited very quickly because the small airways disease. He has all his inhalers with him and he continue to treat himself as he is medically optimize right now. But even with the medical optimization he still have symptoms of bronchospasms. The patient did have pulmonary function studies which I personally reviewed with him. It appears that he does have some small airways disease consistent with the asthma. Also is breathe bronchodilator FEV1 to FVC is 72% which is very close to the obstructive physiology. In addition to that the patient does have a decrease in the total lung capacity compared to previous now 79% consistent with a mild restrictive lung disease. We are going to request a CT scan of the chest to better address the restriction and also his ongoing symptoms. The patient also has polycythemia. Is felt to be secondary to likely his obstructive sleep apnea. The patient needs to make sure to uses CPAP every night. I do not recommend hypoglossal nerve stimulator at this time. 02/22/2025 the patient is here for pulmonary follow-up visit. Overall the patient is doing okay. He still continues to have dyspnea on exertion [id number] severity. Has been using his respiratory inhalers. Recently he was working outside and construction site and did develop significant shortness of breath going up and downstairs. Although was warm and also there were allergies in the area. The likely worsen his respiratory status. The patient knows uses rescue medication prior to any exercise activity outside. The patient also has been using his CPAP at nighttime. Although intermittently. 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 He has hemoglobin apparently has been fairly stable. He has not required any further therapeutic phlebotomies. Otherwise the patient is without any other complaints. Plan to follow-up in the spring. [facility] Medical History (Updated 07/24/24 @ 20:42 by Noble Waller MD) Chronic restrictive lung disease Chronic allergic rhinitis Hemoptysis JEAN on CPAP GAY positive D-dimer, elevated Neuropathy Limb swelling Dyspnea Moderate persistent asthma Family History (Updated 07/30/20 @ 21:09 by Noble Waller MD) Other Diabetes Social History Patient Tobacco Use Status: Never used Tobacco Review of Systems Const Reports fatigue, Denies night sweats and Reports weight loss ENT Denies change in voice, Denies lip swelling, Denies mouth pain, Reports nasal congestion, Reports nasal discharge and Denies tongue swelling Card Denies leg edema and Reports dyspnea on exertion Resp Denies chest congestion, Reports cough, Denies hemoptysis, Reports dyspnea on exertion and Reports wheezing GI Denies abdominal pain Musc Reports myalgias Neuro Denies Neuro-related abnormal movements Psych Denies no additional complaints Endo Reports fatigue Alejandro/Lymph Denies easy bleeding and Denies lymphadenopathy Aller/Immun Denies lip swelling, Denies tongue swelling and Reports wheezing Physical Exam Vital Signs: Last Vital Signs Pulse 70 02/22/25 10:50 BP 148/90 H 02/22/25 10:50 Pulse Ox 96 02/22/25 10:50 Oxygen Delivery Method Room Air 02/22/25 10:50 BMI result Body Mass Index 34.8 Const General: alert HEENT General nose exam: Abnormal external nose present and Nasal discharge present Neck Neck: Yes normal visual inspection, Yes full ROM and Yes no lymphadenopathy Chest Chest palpation & inspection: normal inspection of the chest Resp Auscultation: no rales, no rhonchi, no wheezes and diminished lung sounds Cardio Rate: regular rate Rhythm: regular rhythm Heart sounds: S1 normal heart sound present and S2 normal heart sound present GI Palpation (GI): Soft to palpation and nontender Auscultation: normal bowel sounds General: Yes no CVA tenderness Back/Spine/Pelvis Back: no CVA tenderness Skin General skin exam: rashes and/or lesions noted Extrem General: No clubbing, No cyanosis and Yes edema Assessment & Plan Assessment & Plan (1) JEAN on CPAP: Code(s): G47.33 - Obstructive sleep apnea (adult) (pediatric); Z99.89 - Dependence on other enabling machines and devices Category: Medical (2) Polycythemia: Code(s): D75.1 - Secondary polycythemia Category: Medical (3) Moderate persistent asthma: Code(s): J45.40 - Moderate persistent asthma, uncomplicated Category: Medical Qualifiers: Asthma complication type: uncomplicated Qualified Code(s): J45.40 - Moderate persistent asthma, uncomplicated (4) GAY positive: Code(s): R76.8 - Other specified abnormal immunological findings in serum Category: Medical (5) Dyspnea: Code(s): R06.00 - Dyspnea, unspecified Category: Medical Qualifiers: Dyspnea type: dyspnea on exertion Qualified Code(s): R06.09 - Other forms of dyspnea (6) Chronic restrictive lung disease: Code(s): J98.4 - Other disorders of lung Category: Medical (7) Chronic allergic rhinitis: Code(s): J30.9 - Allergic rhinitis, unspecified Category: Medical Plan continue Symbicort continue Spiriva GABI as needed Continue singulair F/U with Hematology regarding polycythemia Continue CPAP therapy F/U 6-8 months Coding Level of Care Code Est Pt Level 4 (23919) Complex EM visit Add On G2211 Diagnoses JEAN on CPAP G47.33; Z99.89 Polycythemia D75.1 Moderate persistent asthma without complication J45.40 Asthma complication type: uncomplicated GAY positive R76.8 Dyspnea on exertion R06.09 Dyspnea type: dyspnea on exertion Chronic restrictive lung disease J98.4 Chronic allergic rhinitis J30.9 Time Spent (min) 17
--- OUTSIDE RECORDS SUMMARY | 2025-02-22 11:24 | XMS_ITS | Clinical Summary ---
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 Chronic obstructive pulmonar y disease (CMS/HCC V24, CMS/HCC V28) 12/12/2016 DX:Chronic obstructive pulm onary disease (HCC) Gastroesophageal reflux disease 11/07/2013 DX:Gastroesophageal reflux disease Hyperlipidemia 04/27/2017 DX:Hyperlipidemi a Hypertension 04/27/2017 DX:Hypertension Mixed anxiety depressive disorder 04/27/2017 DX:Mixed anxiety depressive disorder Obstructive sleep apnea syndrome 06/15/2017 DX:Obstructive sleep apnea syndrome; COMMENT: On CPAP Umbilical hernia 05/24/2015 DX:Umbilical he rnia Vitamin D deficiency 01/07/2016 DX:Vitamin D deficiency Social History Tobacco Use Types Packs/Day Years Used Date Smoking Tobacco: Never Smokeless Tobacco: Never Sex and Gender Information Value Date Recorded Sex Assigned at Not on file Legal Sex Male 11:37 PM EST Gender Identity Not on file Sexual Orientation Not on file Obstetrics History Plan of Treatment Health Maintenance Due Date Last Done Comments DTaP,Tdap,and Td Vaccines (1 - Tdap) 1987 Hepatitis B Vaccines (1 of 3 - 19+ 3-dose series) 1987 Pneumococcal Vaccine: 50+ Years (2 of 2 - PCV) 2018 11/03/2012 Zoster Vaccines (1 of 2) 2018 COVID-19 Vaccine (1 - 2023-2 5 season) 2024 Influenza Vaccine (Season Ended) 2025 04/27/2015, 09/23/2013 Colorectal Cancer Screening: Colonoscopy 02/24/2029 02/24/2019 Pneumococcal Vaccine: Pediatrics (0 to 5 Years) and At-Risk Patients (6 to 64 Years) Aged Out 11/03/2012 No longer eligible b ased on patient's age to complete this topic HIB Vaccines Aged Out No longer eligi ble based on patient's age to complete this topic HPV Vaccines Aged Out No longer eligi ble based on patient's age to complete this topic Hepatitis A Vaccines Aged Out No long er eligible based on patient's age to complete this topic IPV Vaccines Aged Out No longer eligi ble based on patient's age to complete this topic MMR Vaccines Aged Out No longer eligi ble based on patient's age to complete this topic Meningococcal ACWY Vaccine Aged Out N o longer eligible based on patient's age to complete this topic Meningococcal B Vaccine Aged Out No l onger eligible based on patient's age to complete this topic RSV Immunization Patients Under 20 months Aged Out No longer eligible b ased on patient's age to complete this topic Varicella Vaccines Aged Out No longer eligible based on patient's age to complete this topic Care Teams Cardiac Rn Relationship Specialty Start Date End Date Meagan Sears MD PCP - General Internal Medicine 08/10/17
== END 2025-02-22 11:20 | disposition home or self-care (01) ==
LOC: HO.HPS 10:09
PROVIDERS: Visit Provider Hospitalist
DX: G47.33 Obstructive sleep apnea (adult) (pediatric) (principal); Z99.89 Dependence on other enabling machines and devices; D75.1 Secondary polycythemia; J45.40 Moderate persistent asthma, uncomplicated; R76.8 Other specified abnormal immunological findings in serum; R06.09 Other forms of dyspnea; J98.4 Other disorders of lung; J30.9 Allergic rhinitis, unspecified
CPT/HCPCS: 99214; G2211

== ENCOUNTER → 2025-02-22 10:08 | Outpatient (BNVA) | payer MEDICARE, OTHER, SELFPAY | PROVIDERS: Visit Provider Hospitalist | DX: J84.9 Interstitial pulmonary disease, unspecified (principal); J45.40 Moderate persistent asthma, uncomplicated; J30.9 Allergic rhinitis, unspecified; G47.33 Obstructive sleep apnea (adult) (pediatric); R06.09 Other forms of dyspnea; D75.1 Secondary polycythemia; R76.8 Other specified abnormal immunological findings in serum; Z99.89 Dependence on other enabling machines and devices | CPT/HCPCS: 99212 ==